=== PATIENT | male | born 1945 | race Caucasian/White ===

== ENCOUNTER 2025-02-01 06:03 | Inpatient (IN) | payer MEDICARE, OTHER, SELFPAY ==
[2025-01-31 20:56] VITALS: BP 176/102
[2025-01-31 21:20] LABS: Urine Character Clear (Clear)
[2025-01-31 21:21] LABS: Hematocrit 36.7 % (39.0-52.0); Hemoglobin 12.6 g/dL (13.0-18.0); Mean Corp Hgb Conc. 34.3 g/dL (33.0-37.0); Mean Corpuscular Volume 92.9 fL (80.0-94.0); Nucleated Red Blood Cells % 0 % (-); Platelet Count 189 10^3/uL (130-400); Red Cell Dist. Width 13.0 % (11.5-14.5)
[2025-01-31 21:26] LABS: Urine White Cell 0-2 /HPF (0-5)
[2025-01-31 21:44] LABS: ALT (SGPT) 18 U/L (0-50); AST (SGOT) 24 U/L (17-59); Albumin 4.0 g/dl (3.5-5.0); Alkaline Phosphatase 81 U/L (38-126); Blood Urea Nitrogen 39 mg/dl (9-20); Calcium 8.9 mg/dl (8.4-10.2); Carbon Dioxide 20 mmol/L (22-30); Chloride 112 mmol/L (98-107); Glucose 147 mg/dl (70-99); Potassium 4.2 mmol/L (3.5-5.1); Sodium 139 mmol/L (135-145); Total Protein 6.4 g/dl (6.3-8.2); eGFR 24.17
--- NOTE | 2025-02-01 00:05 | ED.GENMED ---
History of Present Illness
General
Chief Complaint: Male Genito-Urinary Symptoms
Source: patient
Exam Limitations: none
Time Seen by Provider: 02/01/25 00:04
Nursing documentation reviewed up to this point in time: agreed with
History of Present Illness
History of Present Illness:
Note:
CHIEF COMPLAINT(S)
Ribbling discomfort and right-sided pain, with concerns about enlarged prostate and potential urinary retention.
HISTORY OF PRESENT ILLNESS
The patient is an 79-year-old male presenting with discomfort primarily on the right side, which has been occurring for a few days. The patient denies having a fever but admits to not feeling well. He mentioned recent travel from [place] to
[place], indicating he splits his time between the two locations. The patient believes his symptoms might relate to a previously diagnosed enlarged prostate, potentially causing urinary retention. He notes not having been to this hospital
before except for stitches in his finger over a decade ago, unable to recall which finger. He is experiencing some relief but reports a sensation of fullness and states that there is a significant decrease in urinary output.
ADDITIONAL HISTORY OBTAINED FROM SOURCES OTHER THAN THE PATIENT
The patient�s is present and involved in providing information about his health condition.
CHRONIC MEDICAL CONDITIONS SIGNIFICANTLY AFFECTING CARE
The patient has a known history of an enlarged prostate.
PHYSICAL EXAM
- Nursing notes reviewed and vital signs reviewed.
- Patient in no acute distress, hypertensive, afebrile.
- Head: Normocephalic, atraumatic.
- Neck: No Jugular Venous Distention.
- Cardiac: Regular rate and rhythm, S1 and S2 present, no S3 or S4.
- Pulmonary: Lungs clear bilaterally.
- Abdomen: Soft, non-distended, positive tenderness right cva.
- Extremities: No edema or cyanosis, normal pulses.
- Neurological: Alert and oriented to person, place, and time.
DIFFERENTIAL DIAGNOSIS
The Differential Diagnosis includes, in no particular order and is not limited to:
1. Urinary Tract Infection
2. Prostatitis
3. Benign Prostatic Hyperplasia
4. Kidney Stones
5. Acute Kidney Injury
6. Musculoskeletal Pain
7. Pyelonephritis
8. Urinary Retention
9. Dehydration
10. Hypertensive Crisis
PLAN
- Review lab results, including urinalysis and kidney function tests.
- Monitor the patient�s renal function, given the noted elevation in creatinine.
- Assess the need for hospitalization based on the review of the patients kidney function and other lab results.
- Obtain previous lab records to evaluate changes in the patients kidney function.
- Consider treatment adjustments depending on laboratory findings suggesting prostatitis or urinary retention.
CARE-UPDATE
02/01/25 - 02:32
Patients discomfort has improved following polycatheter placement. The review of past labs indicates a creatinine level of 1.1 in June [address]24. Todays CT scan reveals bilateral hydronephrosis, more pronounced on the right side compared to the left.
Urinalysis shows no evidence of infection. The patient is admitted to the hospitalists for further evaluation and treatment of acute renal failure, likely of post-obstructive origin.
Disposition:
SUMMARY OF ENCOUNTER
The patient is an 79-year-old male who presented to the emergency department with right-sided discomfort described as 'ribbling,' and concerns of urinary retention possibly due to a known enlarged prostate. He also reported decreased urinary output
and a sensation of fullness. A CT scan revealed bilateral hydronephrosis. Urinalysis showed no evidence of infection. The patient was evaluated for acute renal failure of likely post-obstructive origin. A folycatheter was placed, leading to some
symptom improvement.
DISPOSITION
Admit
ASSESSMENT
Acute renal failure likely due to post-obstructive origin secondary to urinary retention, possibly related to enlarged prostate leading to bilateral hydronephrosis.
MANAGEMENT OF THE PATIENTS CARE WAS DISCUSSED WITH
The hospitalist team was involved in the discussion for the patients admission for further evaluation and management.
PLAN
The patient will be admitted for further evaluation and management of acute renal failure, likely post-obstructive in nature. Continued monitoring and treatment adjustments depending on findings and response to therapy.
INDEPENDENT REVIEW OF LABS AND INTERPRETATION OF TESTS
My independent review of urinalysis indicates no evidence of infection.
My independent CT interpretation suggests bilateral hydronephrosis, more pronounced on the right side.
MEDICAL DECISION MAKING
-Complexity of Data Reviewed: Chronic conditions affecting care [enlarged prostate]
-The DDx includes:
1. Urinary Tract Infection
2. Prostatitis
3. Benign Prostatic Hyperplasia
4. Kidney Stones
5. Acute Kidney Injury
6. Musculoskeletal Pain
7. Pyelonephritis
8. Urinary Retention
9. Dehydration
10. Hypertensive Crisis
-Data:
Category 1
Clinical information was obtained from an independent historian (identification provided by the patient�s ).
Category 2
My independent interpretation of CT scan shows bilateral hydronephrosis.
Category 3
Management was discussed with the hospitalist team.
DIAGNOSIS
Acute renal failure, likely post-obstructive (ICD-10: N17.2)
Acute urinary retention (ICD-10: R33.8)
Bilateral hydronephrosis (ICD-10: N13.30)
Phy Exam
Physical Exam
Physical Exam:
.
Course
Orders/Labs/Results
Orders:
Orders
01/31/25 21:11
Complete Blood Count/With Diff Urgent
Comprehensive Metabolic Panel Urgent
Lactic Acid Urgent
Urinalysis Reflex To Culture Urgent
Date Specimen was Collected: 01/31/25
Time Specimen was Collected: 20:59
Urine Microscopic Reflex Cult Urgent
02/01/25 00:05
Morphine Sulfate 4 mg IV NOW STA
Ondansetron Injectable [Zofran] 4 mg IV NOW STA
02/01/25 00:30
CT Abd/pel Without Iv Or Oral Urgent
Comment:
Reason For Exam: right flank pain, urinary retention, history fever
Abnormal Lab Results
01/31/25
21:11
WBC 11.1 H 10^3/uL
(4.8-10.8)
RBC 3.95 L 10^6/uL
(4.70-6.10)
Hgb 12.6 L g/dL
(13.0-18.0)
Hct 36.7 L %
(39.0-52.0)
MCH 31.9 H pg
(27.0-31.0)
Absolute Neuts (auto) 8.5 H 10^3/uL
(1.4-6.5)
Absolute Monos (auto) 1.0 H 10^3/uL
(0.1-0.6)
Neutrophils % 76.4 H %
(42.2-75.2)
Lymphocytes % 13.0 L %
(20.5-51.1)
Chloride 112 H mmol/L
(98-107)
Carbon Dioxide 20 L mmol/L
(22-30)
BUN 39 H mg/dl
(9-20)
Creatinine 2.6 H mg/dL
(0.7-1.3)
Glucose 147 H mg/dl
(70-99)
Ur Occult Blood Reflex 4+ A
(Negative)
Urine RBC 3-6 A /HPF
(0-2)
Urine Bacteria (Reflex) Few A
(Negative)
01/31/25 21:11
01/31/25 21:11
Vital Signs
Initial and Last Documented VS:
Initial Vital Signs
Temp Pulse Resp BP Pulse Ox
98.4 F 82 16 176/102 97
01/31/25 20:56 01/31/25 20:56 01/31/25 20:56 01/31/25 20:56 01/31/25 20:56
Last Documented Vital Signs
Temp Pulse Resp BP Pulse Ox
98.4 F 82 16 150/88 97
01/31/25 20:56 01/31/25 20:56 01/31/25 20:56 02/01/25 02:06 02/01/25 00:06
*Pulse Oximetry
SaO2: 97
Oxygen Mode of Delivery: Room air
Patient hypoxic: no
*Critical Care Note
Total Time (30-74mins, 75-104mins- exclusive of procedures): Not Applicable
ED Attending Note
-
Portions of this chart may have been created with voice recognition software.� Occasional wrong word or��sound alike� substitutions may have occurred due to the inherent limitations of voice recognition software.
Discharge Plan
Departure
Patient Disposition: Admit
Date of Disposition: 02/01/25
Time of Disposition: 02:30
Admit to: Med/Surg
Presentation/result/management discussed w/ accepting MD/DO: Hospitalist
Patient with high blood pressure during this ER visit?: Yes
Condition: Good
Discharge Problem:
Acute renal failure, Acute urinary retention, Bilateral hydronephrosis
Referrals:
NONE,* [Family Provider, Internal Medicine]
Interventions
Interventions:
*Risk Screen - Suicide Last Done: 02/01/25 00:25
*General Assessment Last Done: 02/01/25 00:25
*Neglect/Abuse Screening Last Done: 02/01/25 00:25
*ED- Fall Risk Assessment Last Done: 02/01/25 00:25
*ED COVID-19 Vaccine History Last Done: 02/01/25 00:25
ED-Male Genitourinary Assessment Last Done: 01/31/25 23:40
Discharge Date and Time
Print Language: BULGARIAN
[2025-02-01] MEDS: MORPHINE SULFATE 4 MG IV (00:09)
[2025-02-01] MEDS: ZOFRAN 4 MG IV (00:09)
[2025-02-01 02:06] VITALS: BP 150/88
--- NOTE | 2025-02-01 04:54 | HPS.HSE ---
Family Physician
-
Family Physician: * NONE
Chief Complaint
-
Abdominal Pain, Back Pain, Difficulty Urinating
History of Present Illness
Patient is an 79y M with PMH significant for BPH who presents to ED complaining of difficulty urinating and abdominal pain / back pain. Patient reports long history of BPH and urinary issues. He notes that he has had more difficulty passing
urine for the past three weeks or so. His symptoms have become progressively worse. This past week he started to develop 'spasms' and would pass very small amounts of non-bloody urine with minimal relief. He is in the process of traveling between
his homes in [place] and [place]. He stopped at an Urgent Care on Thursday and was started on ciprofloxacin for suspected prostatitis. His symptoms have not improved.
He presented to the ED today with continued difficulty passing urine - only tiny amounts at a time - with increasing abdominal distention and pain and new lower back pain.
Medical History
Past Medical History
Past Medical History: Reports Other
Additional Past Medical History:
BPH
Dyslipidemia
Past Surgical History: Reports Other
Additional Past Surgical History:
Right RICHARD
Appendectomy
Social History
Tobacco: Non-smoker
Alcohol: Occasional
Drug: None
Family History
Family History: Not pertinent
Allergies / Home Medications
Allergies reflects when Allergies were last updated in [employer]
Home Medications with original date entered in [employer]
Allergy/Medication List:
Allergies
Allergy/AdvReac Type Severity Reaction Status Date / Time
Penicillins Allergy Rash Verified 01/31/25 20:59
Home Medications
aspirin 81 mg chewable tablet 81 mg PO DAILY 02/01/25
atorvastatin 10 mg tablet 10 mg PO HS 02/01/25
calcium carbonate (Tums) 400 mg PO HS 02/01/25
doxazosin 8 mg tablet 8 mg PO HS 02/01/25
multivitamin 1 tab PO DAILY 02/01/25
Review of Systems
-
History Source: Patient
A 12 point ROS was completed and negative except as noted: Yes
Constitutional: Denies Fever or Chills
Respiratory: Denies Cough or Trouble Breathing
Cardiac: Denies Chest Pain or Palpitations
Abdomen/GI: Reports Abdominal Pain; Denies Nausea, Vomiting or Diarrhea
: Reports Difficulty Voiding and Other (Suprapubic pain, bladder spasms.)
Musculoskeletal: Denies Joint Pain or Edema
Neurological: Denies Dizzy or Headache
Physical Exam
Vital Signs
Vital Signs
Temp Pulse Resp BP Pulse Ox
98.4 F 82 16 150/88 97
01/31/25 20:56 01/31/25 20:56 01/31/25 20:56 02/01/25 02:06 02/01/25 00:06
Physical Exam
General: Other (79y M in no acute distress.)
HEENT: Moist mucous membranes and PERRLA
Respiratory: Clear; No Wheezes, Rales or Rhonchi
Cardiac: S1/S2 and Regular Rhythm; No Murmur
GI: Other (Abdomen is softly distended. Mild suprapubic tenderness without guarding.)
Genito-urinary: Other (Chance in place now draining bloody urine with some sediment / clots.)
Musculoskeletal: No Clubbing, No Cyanosis and Other (1+ pedal edema bilaterally.)
Neuro: AO x 3
Laboratory Results
-
01/31/25 21:11
01/31/25 21:11
Laboratory Results
Lactic Acid 1.1 mmol/L (0.7-2.0) 01/31/25 21:11
Total Bilirubin 0.5 mg/dl (0.2-1.3) 01/31/25 21:11
AST 24 U/L (17-59) 01/31/25 21:11
ALT 18 U/L (0-50) 01/31/25 21:11
Alkaline Phosphatase 81 U/L (38-126) 01/31/25 21:11
Impression/Plan
-
A/P: Patient is an 79y M with PMH significant for BPH who presents to ED for evaluation of difficulty urinating, abdominal pain and back pain x 3 weeks.
Acute Urinary Retention
HUGO
Bilateral Hydronephrosis
BPH
- Admit for further evaluation and treatment.
- Chance placed in the ED for > 2 liters of return.
- Now with hematuria / clots s/p decompression.
- Not on anticoagulation.
- Maintain Chance. Flush as needed for clots / decreased output.
- IVF support.
- Follow for return to baseline renal function (1.16).
- Urology evaluation for additional recommendations.
- Continue doxazosin.
- Empiric abx for now pending culture data.
- Can hold ASA with no personal history of TX, CVA, etc.
DVT Prophylaxis: SCDs
Code Status: Full
--- NOTE | 2025-02-01 05:37 | CONS.URO ---
Consultation
-
Date/Time Consultation Requested: 02/01/25 0545
Date/Time Consultation Performed: 02/01/2025 0629
Requesting Provider: ED
Performing Provider: Gen
Reason for Consultation: AUR/ARF
Medical History
History of Present Illness
ED note, excerpted: 'The patient is an 79-year-old male presenting with discomfort primarily on the right side, which has been occurring for a few days. The patient denies having a fever but admits to not feeling well. He mentioned recent travel
from [place] to [place], indicating he splits his time between the two locations. The patient believes his symptoms might relate to a previously diagnosed enlarged prostate, potentially causing urinary retention. . . . He reports a
sensation of fullness and states that there is a significant decrease in urinary output.'
Followed by an urlogist in [place]: 'enlarged prostate for 45 years'; on Doxazosin 8 mg but not 5-SARAHI.
Past Medical History
Past Medical History: Hypercholesterolemia and Other (BPH)
Past Surgical History: Other (Right RICHARD, Appendectomy)
Social History
Personal:
Employment: Retired
Family History
Family History: Reviewed & Not Pertinent
Allergies/Home Medications
Allergies
Allergy/AdvReac Type Severity Reaction Status Date / Time
Penicillins Allergy Rash Verified 01/31/25 20:59
Home Medications
�Medication �Instructions �Recorded �Confirmed �Type
aspirin 81 mg chewable tablet 81 mg PO DAILY 02/01/25 02/01/25 History
atorvastatin 10 mg tablet 10 mg PO HS 02/01/25 02/01/25 History
calcium carbonate (Tums) 400 mg PO HS 02/01/25 02/01/25 History
doxazosin 8 mg tablet 8 mg PO HS 02/01/25 02/01/25 History
multivitamin 1 tab PO DAILY 02/01/25 02/01/25 History
Physical Exam
Vital Signs
Vital Signs
Temp Pulse Resp BP Pulse Ox
98.4 F 82 16 150/88 97
01/31/25 20:56 01/31/25 20:56 01/31/25 20:56 02/01/25 02:06 02/01/25 00:06
Lab / Testing Results
Laboratory Results
01/31/25 21:11
01/31/25 21:11
Physical Exam
adult male on ED gurney
General: Well Developed, No Apparent Distress and Comfortable
HEENT: Normocephalic
GI: Soft, Non Tender and Non Distended
Genito-urinary: No Costovertebral Tend
Skin: Warm
Neuro: Awake and Alert
Psych: Calm and Intact Judgement
Assessment / Plan
-
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
Obstructive Nephropathy
expected Post-Obstructive Diuresis [POD]
expected gross hematuria, due to abrupt decompression of chronically distended bladder's luminal veins
Rec:
tx POD per electrolytes
if small [16 Fr] Chance clots, then upsize to 24-fr 3-way and initiated CBI prn
initiate Finasteride
pt to f/u with [place] urologist
Data Reviewed
-
CT Scan: Image personally visualized and interpreted (Prostatomegaly with bilateral hydrourteronephrosis -- hip prosthesis obscures bladder/prostate so some pathology might be undetected)
Lab Data: Labs Reviewed
[2025-02-01] MEDS: NSS 1000 IV ×2 (08:14→16:52)
[2025-02-01] MEDS: PROSCAR 5 MG PO (09:15)
[2025-02-01] MEDS: STERILE WATER FOR INJECTION 10 ML IV (10:32)
[2025-02-01] MEDS: ROCEPHIN 1000 MG IV (10:32)
[2025-02-01 10:36] VITALS: BP 154/92
--- NOTE | 2025-02-01 11:55 | CM ---
CM reviewed chart and met with pt bedside in ED. Pt splits his time between [place] and [place], was staying with family locally while on his way to [place].
Lives with in 1 story home, no LULU in [place]. Independent in ADLs, personal care and ambulation at baseline, no assistive devices. NO DME.
Has gold which was inserted in ED.
Confirms prescription coverage.
PCP: has PCP in both [place] and [place], [place] PCP [facility]
No local pharmacy
Discharge plan: Anticipate home pending ongoing medical evaluation
[2025-02-01 14:00] VITALS: BP 147/85; BMI 26.4
--- NOTE | 2025-02-01 14:00 | PTCARENOTE ---
02/01- Patient transferred and oriented to unit without issue. AAOX3; MedSurg; Skin CDI except an ulcer on L-medial ankle. Denies any current needs. NSS @100ml/hr currently running. Chance CDI draining clear fruit punch colored urine with sediment
but no clots at this time.
[2025-02-01 15:00] VITALS: BP 138/89
[2025-02-01] MEDS: FLOMAX 0.4 MG PO (19:49)
[2025-02-01] MEDS: LIPITOR 10 MG PO (19:49)
[2025-02-01 23:00] VITALS: BP 140/81
[2025-02-02] MEDS: NSS 1000 IV (03:18)
[2025-02-02 07:00] VITALS: BP 136/83
[2025-02-02] MEDS: PROSCAR 5 MG PO (07:45)
[2025-02-02 08:12] LABS: Hematocrit 38.5 % (39.0-52.0); Hemoglobin 13.1 g/dL (13.0-18.0); Mean Corp Hgb Conc. 34.0 g/dL (33.0-37.0); Mean Corpuscular Volume 93.7 fL (80.0-94.0); Platelet Count 183 10^3/uL (130-400); Red Cell Dist. Width 12.9 % (11.5-14.5)
[2025-02-02 08:56] LABS: Blood Urea Nitrogen 22 mg/dl (9-20); Calcium 8.6 mg/dl (8.4-10.2); Carbon Dioxide 21 mmol/L (22-30); Chloride 113 mmol/L (98-107); Estimated Creatinine Clearance 38 ml/min; Glucose 164 mg/dl (70-99); Potassium 4.3 mmol/L (3.5-5.1); Sodium 142 mmol/L (135-145); eGFR 43.29
[2025-02-02] MEDS: ROCEPHIN 1000 MG IV (09:37)
[2025-02-02] MEDS: STERILE WATER FOR INJECTION 10 ML IV (09:37)
--- NOTE | 2025-02-02 13:03 | W.PN.HOSP.TC ---
Today's Communication/Plan
-
DC
Assessment / Plan
Assessment / Plan
A/P: Patient is an 79y M with PMH significant for BPH who presents to ED for evaluation of difficulty urinating, abdominal pain and back pain x 3 weeks.
Acute Urinary Retention
HUGO
Bilateral Hydronephrosis
BPH
Urological concern for cystitis and associated bilateral ascending. Tract infection
- Hematuria and postobstructive diuresis after Chance catheter placement
- Hematuria has cleared and H&H is stable
- Postoperative diagnosis noted with multiple abnormalities. Patient has no GI symptoms and tolerating adequate liquids. Infection has improved since Chance catheter placement. His creatinine baseline around 1.2 per patient history.
- Not on anticoagulation.
- Maintain Chance for BPH and urinary retention. On Flomax which is continued. Proscar added on this admission. Patient has urologist in [place] where he is headed this weekend. He also has an appointment with urologist on Thursday.
- Advised to keep an eye on urine output and if it is more than 3.5 L/day he was advised that he will not be able to maintain hydration and should get in touch with the urologist.
-Appreciate urology input.
- Continue doxazosin.
- Resume ASA and DC
- Urine analysis shows no pyuria but radiological imaging raises a concern. Hard to know if the urine specimen obtained is accurately reflecting after urinary stream. Prefer to treat him with empirical antibiotics-ciprofloxacin prescribed if the
QTc is okay.
Nursing to teach him about Chance care and switch to leg bag.
DC home today.
Total time of discharge 32 minutes
Anticipated Discharge: Today
Subjective/Interval History
-
Date of Service: February 02, 2025
Voicing no specific complaints.
Denies any nausea vomiting or abdominal pain.
Denies any dizziness or lightheadedness.
No fever chills.
No shortness of breath or chest pain.
Ambulating to bathroom without issues.
Objective Data
-
Labs:
Laboratory Results
02/02/25
07:51
WBC 8.2
Hgb 13.1
Hct 38.5 L
Plt Count 183
Sodium 142
Potassium 4.3
Chloride 113 H
Carbon Dioxide 21 L
BUN 22 H
Creatinine 1.6 H
Glucose 164 H
Calcium 8.6
Vital Signs:
Vital Signs
Temp Pulse Resp BP Pulse Ox
98.5 F 72 20 136/83 96
02/02/25 07:00 02/02/25 07:00 02/02/25 07:00 02/02/25 07:00 02/02/25 07:00
I&O
02/01/25 02/02/25 02/03/25
06:59 06:59 06:59
Intake Total 2640 / 2640
Output Total 3600 / 3600 6000 / 6000
Balance -3600 / -3600 -3360 / -3360
Physical Exam
-
General: Comfortable
Respiratory: Clear to Auscultation and Non Labored Respirations; Negative Accessory Resp Muscle Use
Cardiac: Regular Rhythm and S1/S2
GI: Soft and Nontender
Genito-urinary: Clear Urine and Chance
Neuro: AO x 3
Psych: Calm; Negative Confused
Data Reviewed
-
Labs: Labs Reviewed by me
--- NOTE | 2025-02-02 13:09 | CM ---
CM reviewed chart, patient seen bedside with , for discharge today. Patient denies needs upon discharge, will transport home. IMM verbally reviewed, provided with copy, placed in chart. CM will continue to follow for all discharge planning
needs.
Plan; home with , no needs.
--- NOTE | 2025-02-02 15:08 | W.DCSUMMARY ---
Discharge Summary
Discharge Data
Date of Admission: 02/01/25
Date of Discharge: 02/02/25
-
Pending Results: No
Hospital Course
Primary diagnosis:
Acute urinary retention
Acute kidney injury
Bilateral hydro ureteronephrosis
Marked prostatomegaly
Secondary diagnosis:
Hyperlipidemia
Hospital course:
Patient was en route to his hometown in [place] from [place]. He had stopped over and [facility] to be with the family presented with difficulty urinating and abdominal/back pain and was noted to be in acute urinary retention
with acute kidney injury. His creatinine was 2.6. His baseline apparently is 1.16. He had placement of Chance catheter in the urine subsequent to which he had hematuria without clots. He also had postobstructive diuresis without much electrolyte
disturbances. It did improve his creatinine from 2.6-1.[address] showed mild to moderate bilateral hydroureteronephrosis. There is bilateral periureteral/perinephric inflammatory stranding. Large amount of inflammatory stranding anterior to the urinary bladder was also noted. There is large urinary
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 There was marked prostatomegaly which might be the cause of his retention.
He had no fevers and white count was only 11.1. Urine analysis showed no pyuria. Suspect all the periureteral and perinephric stranding may be urine from obstruction but in view we cannot rule out a UTI he was initially put on ceftriaxone and
switched over to Keflex at the time of discharge. Advised to watch for any fevers or recurrent flank pain.
Was seen by urologist who recommended addition of Proscar to his Flomax. He has active follow-up with his urologist ongoing and in fact he has an appointment on coming Thursday in the office.
With resolution of hematuria and improvement in creatinine and no alkali disturbances he was discharged home with a Chance catheter
Consultants on board:
Urology-Shadi Blankenship
Discharge Plan
-
Patient Disposition: Home (Routine Discharge)
Discharge Diagnosis/Procedures: Acute urinary retention requiring Chance catheter; enlarged prostate; HUGO secondary to possible obstructive uropathy
Diet: Regular
Activity: As tolerated
Driving Restrictions: As prior to admission
Bathing Restrictions: None
Activity Restrictions/Additional Instructions:
Monitor urinary output 24 hours and try to manage oral intake. If unable to manage oral intake or feeling dehydrated/weak you would benefit IV fluids. Call MD if your urine output is more than 3.5l in 24hr
Referrals:
NONE,* [Family Provider, Internal Medicine] - in less than 1 week
Referral Note: Follow up with PCP in one week -check BMP blood work
Prescriptions:
New
finasteride 5 mg Tablet
5 mg PO DAILY Qty: 30 0RF
cephalexin 500 mg capsule
500 mg PO TID 7 Days Qty: 21 0RF
Continued
atorvastatin 10 mg Tablet
10 mg PO HS
doxazosin 8 mg Tablet
8 mg PO HS
multivitamin Tablet
1 tab PO DAILY
calcium carbonate [Tums] 200 mg calcium (500 mg) Tablet,Chewable
400 mg PO HS
aspirin 81 mg Tablet,Chewable
81 mg PO DAILY
Discharge Orders:
Discharge Patient (As Directed); Ordered 02/02/25
Ordered By: Nabor Augustine
Discharge Date and Time
Discharge Date/Time: 02/02/25 13:57
Print Language: MACEDONIAN
== END 2025-02-02 13:57 | disposition home or self-care (01) | DRG 683 ==
LOC: 4 WEST ACU 06:03
PROVIDERS: Emergency Medicine; ADMITTING PHYSICIAN Hospitalist; ATTENDING PHYSICIAN Internal Medicine; CONSULT PHYSICIAN Specialist; EMERGENCY PHYSICIAN Emergency Medicine
DX: N17.9 Acute kidney failure, unspecified (principal); N13.8 Other obstructive and reflux uropathy; N40.1 Benign prostatic hyperplasia with lower urinary tract symptoms; N13.6 Pyonephrosis; R33.8 Other retention of urine; E78.00 Pure hypercholesterolemia, unspecified; R31.0 Gross hematuria; N32.3 Diverticulum of bladder; Z79.82 Long term (current) use of aspirin
CPT/HCPCS: 51702; 51798; 74176; 80048; 80053; 81003; 81015; 82550; 83605; 85025; 85027; 93005; 99285